=== PATIENT | male | born 1960 | race Caucasian/White ===

== ENCOUNTER 2022-05-18 16:58 | Emergency (ER) | payer OTHER, SELFPAY ==
[2022-05-18 17:08] VITALS: BP 149/94; PULSE 66; RESP 16; TEMP 37.2; O2SAT 97
--- NOTE | 2022-05-18 17:35 | XRR_ITS ---
PROCEDURE INFORMATION: Exam: XR Chest Exam date and time: 05/18/2022 5:48 PM Age: 61 years old Clinical indication: Cough TECHNIQUE: Imaging protocol: Radiologic exam of the chest. Views: 1 view. COMPARISON: No relevant prior studies available. FINDINGS: Lungs: No consolidative pulmonary infiltrate noted. Pleural spaces: No pleural effusion. No pneumothorax. Heart/Mediastinum: No cardiomegaly. Bones/joints: Degenerative spine changes are noted. XR/XR chest 1V portable [id number] IMPRESSION: No consolidative pulmonary infiltrate noted.
[2022-05-18 18:11] LABS: SARS Covid-2 Antigen negative (Negative)
[2022-05-18 18:12] LABS: Influenza A by IFA negative (Negative); Influenza B by IFA negative (Negative)
[2022-05-18 19:02] VITALS: BP 157/99; PULSE 67; RESP 16; O2SAT 98
--- NOTE | 2022-05-19 17:06 | W.ED.GENADLT ---
HPI - General Adult General: Chief complaint: General Medical Stated complaint: very bad cold Time Seen by Provider: 05/18/22 17:17 History of Present Illness: 61-year-old male patient presents to the emergency department complaining of cough and congestion x1 day. Patient denies any fever. Patient states his cough is gotten worse. Patient denies any neck pain. Patient denies any chest pain or shortness of breath. Patient states he wanted to be checked out before it potentially got any worse. Associated symptoms: Deny chest pain, confusion, diaphoresis, dyspnea, headache(s), malaise, nausea, rash, palpitations, syncope or vomiting Review of Systems Const: Denies: fever(s), chills, body aches, change in appetite, change in weight, fatigue, malaise or diaphoresis Eyes: Denies: change in vision, blurry vision, blind spots, photophobia, eye discomfort, eye discharge, eye redness, floaters or seeing flashes ENMT: Denies: throat pain, uvular edema, enlarged tonsils, odynophagia, hoarseness, mouth pain, swelling of lips/tongue, oral sores, bleeding gums, dental pain, dry mouth, ear or mastoid pain, ear discharge, change in hearing, tinnitus, disequilibrium, nasal discharge, post nasal drip or sinus pain Card: Denies: chest pain, palpitations, irregular heart rhythm, edema, swelling of feet/ankles, lightheadedness, syncope, pre-syncope, dyspnea on exertion, orthopnea, leg pain with exertion or acrocyanosis Resp: Denies: dyspnea, productive cough, wheezing, stridor, pain on inspiration, change in phlegm color, hemoptysis or chest congestion GI: Denies: abdominal pain, nausea, vomiting, hematemesis, dysphagia, diarrhea, constipation, GI cramping, change in bowel habits or rectal pain : Denies: flank pain, dysuria, urinary frequency, urinary urgency, urinary hesitancy or hematuria Musc: Denies: neck pain, back pain, extremity pain, extremity swelling, joint pain, joint swelling, joint redness, joint warmth or deformity Skin/Breast: Denies: rash, pruritus, erythema, sores, new lesions, changes in skin color or dry skin Neuro: Denies: headache(s), numbness in extremities, weakness in extremities, sensory changes, lack of coordination, difficulty walking, frequent falls, dizziness, vertigo, confusion, behavioral changes, Slurred speech present, difficulty communicating thoughts or seizure-like activity Psych: Denies: anxiety, depression, suicidal ideation or homicidal ideation Endo: Denies: polyuria, polydipsia, tired all the time, cold intolerance, excessive sweating, flushing, hot flashes or heat intolerance Hugo/Lymph: Denies: easy bruising, easy bleeding, petechiae, purpura, enlarged lymph nodes or tender lymph nodes All/Imm: Denies: urticaria, throat swelling, tongue swelling, facial swelling, acute wheezing or itchy eyes PFSH ED PFSH: Social History Smoking and tobacco status: never smoked Physical Exam Const: COMMON NORMALS: no acute distress, patient oriented x3, healthy appearing, alert and well nourished GENERAL APPEARANCE: cooperative, comfortable, well kempt and well developed; not ill appearing ORIENTATION/CONSCIOUSNESS: Yes awake, Yes oriented to person, Yes oriented to place and Yes oriented to time HENMT: COMMON NORMALS: normocephalic, atraumatic, hearing grossly normal bilaterally, external ears normal, EAC's normal, TM's normal bilaterally, Normal external nose present, Normal nasal mucous membranes and turbinates present and moist oral mucous membranes HEAD & SCALP: normal to inspection, normocephalic and atraumatic FACE & SINUS: normal facial exam, sinuses nontender and face symmetric NOSE: Normal external nose present, Normal nares present, Normal nasal mucous membranes and turbinates present, No nasal discharge present and Abnormal external nose present EXTERNAL EAR: Yes external ears normal and Yes mastoids normal EXTERNAL AUDITORY CANAL: EAC's normal TYMPANIC MEMBRANE: TM's normal bilaterally MOUTH: Normal oral and palatal mucosa present, lip normal, tongue normal and Normal salivary glands and ducts present THROAT: no uvular edema Neck/C-Spine: COMMON NORMALS: full ROM, no lymphadenopathy, supple, no meningeal signs, no JVD and Thyroid normal GENERAL: Yes normal visual inspection and Yes trachea midline THYROID: Thyroid normal CERVICAL SPINE: Yes cervical ROM normal Lymph: LYMPHATIC: no lymphadenopathy noted and no lymphedema noted Chest: COMMONS NORMALS: normal inspection of the chest and normal palpation of entire chest wall Resp: COMMON NORMALS: normal respiratory effort, No retractions, No use of accessory muscles and clear to auscultation bilaterally EFFORT & INSPECTION: Yes able to speak in complete sentences and Yes symmetric chest movement AUSCULTATION: clear to auscultation bilaterally Cardio: COMMON NORMALS: no JVD, regular rate and regular rhythm RATE: regular rate RHYTHM: regular rhythm GI: COMMON NORMALS: Normal to inspection, nondistended, normoactive bowel sounds present, Soft to palpation, non-tender, No hepatosplenomegaly present, no masses and no bruits INSPECTION: Yes normal to inspection AUSCULTATION: Yes normoactive bowel sounds PALPATION: Yes Soft to palpation and Yes No hepatosplenomegaly present PERCUSSION: normal to percussion RECTAL EXAM: Yes deferred : COMMON NORMALS: Yes no CVA tenderness BLADDER/KIDNEY EXAM: Yes no CVA tenderness Back/Pelvis: COMMON NORMALS: no CVA tenderness, thoracic and lumbar spine normal to inspection, no thoracic nor lumbar tenderness and thoraco-lumbar ROM normal THORACIC SPINE/UPPER BACK: Yes normal to inspection LUMBAR SPINE/LOWER BACK: Yes normal to inspection Extremity: COMMON NORMALS: normal to inspection, full ROM and capillary refill normal GENERAL: Yes normal exam except as noted Neuro: COMMON NORMALS: patient oriented x3, CN's II-XII intact bilaterally, moves all extremities, no focal motor deficits, no sensory deficits noted and gait normal SENSORIUM/ORIENTATION: Yes alert, Yes oriented to person, Yes oriented to place and Yes oriented to time MENINGEAL SIGNS: Yes no meningeal signs SPEECH: speech normal GAIT: Yes Normal gait present SENSORY EXAM: Yes extremities Psych: COMMON NORMALS: mental status grossly normal, Normal thought process present, cooperative, normal affect, speech normal, activity/motor behavior normal, denies hallucinations, denies homicidal ideation and denies suicidal ideation APPEARANCE: Yes grossly normal and Yes well kempt ATTITUDE: Yes calm ACTIVITY/MOTOR BEHAVIOR: Yes appropriate eye contact SPEECH: Yes normal speech THOUGHT PROCESS: Normal thought process present THOUGHT CONTENT: Yes Normal thought content present ATTENTION/CONCENTRATION: Yes attention grossly intact MEMORY/COGNITION: Yes memory grossly intact INSIGHT: Good insight present (Psych) JUDGEMENT: Good judgement present (Psych) Skin: COMMON NORMALS: no rashes or lesions noted, no wounds, turgor normal, no jaundice, no petechiae and no mottling GENERAL SKIN EXAM: no rashes or lesions noted and turgor normal Course Vital Signs: Vital signs: Vital Signs Temperature 98.9 F 05/18/22 17:08 Pulse Rate 67 05/18/22 19:02 Respiratory Rate 16 05/18/22 19:02 Blood Pressure 157/99 05/18/22 19:02 Pulse Oximetry 98 05/18/22 19:02 MDM - General Adult Medical Decision Making Patient is well-appearing nontoxic and in no acute [id number] male patient presents to the emergency department complaining of cough and congestion x1 day. Patient denies any fever. Patient states his cough is gotten worse. Patient denies any neck pain. Patient denies any chest pain or shortness of breath. Patient states he wanted to be checked out before it potentially got any worse. Patient has no evidence of meningeal irritation or hypoxemia. Patient's vital signs are stable. Patient is negative for influenza and COVID. There are no other concerning findings. Patient's findings are consistent with a viral upper respiratory infection. I discussed home care with patient as well as return precautions. Patient is requesting medication for his cough I will prescribe him Teslaura Block. I do not feel patient would warrant or benefit from any further emergent testing at this time. Patient does not have any chest pain. And patient does not have any new shortness of breath.. Differential Diagnosis Pneumonia, CHF, influenza, COVID Lab Data Radiology Impressions Chest X-Ray 05/18/22 17:35 IMPRESSION: No consolidative pulmonary infiltrate noted. Laboratory Results Influenza Type A Ag negative (Negative) 05/18/22 17:45 Influenza Type B Ag negative (Negative) 05/18/22 17:45 SARS-CoV-2 Ag (Rapid) negative (Negative) 05/18/22 17:45 Discharge Plan Discharge Patient Disposition: Home Clinical Impression: URI (upper respiratory infection) Condition: Stable Prescriptions: No Action lisinopril 20 mg tablet 20 mg PO DAILY omeprazole 20 mg capsule,delayed release(DR/EC) 20 mg PO DAILY tamsulosin 0.4 mg capsule 0.8 mg PO DAILY finasteride 5 mg tablet 5 mg PO DAILY sildenafil 50 mg tablet 50 mg PO DAILY PRN Rx Instructions: administer 30 minutes to 4 hours before activity artificial tear([id number]) 0.1-0.3-0.2 % drops 1 drp ophthalmic (eye) BID PRN propranolol 120 mg capsule,extended release 24hr 120 mg PO DAILY Discharge Orders: Discharge ED (Routine); Ordered 05/18/22 Ordered By: Eugenia Huizar Discharge Diet: Advance as tolerated Discharge Activity: Increase activity as tolerated Patient Instructions: Upper Respiratory Infection (ED), Opioid Safety, Pain Management Activity Restrictions/Additional Instructions: Please rest and stay hydrated Please return to the ER with any worsening of symptoms as provided on discharge instructions Coding Level of Care Code ED 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
== END 2022-05-18 19:03 | disposition home or self-care (01) ==
PROVIDERS: Emergency Provider Registered Nurse
DX: J06.9 Acute upper respiratory infection, unspecified (principal); Z20.822 Contact with and (suspected) exposure to COVID-19
CPT/HCPCS: 71045; 87426; 87804; 99283

== ENCOUNTER → 2022-05-29 09:06 | Outpatient (BNVA) | payer OTHER, SELFPAY | PROVIDERS: Referring Provider Emergency Medicine Emergency Medical Services; Visit Provider Specialist | DX: M25.561 Pain in right knee (principal); M25.562 Pain in left knee; G89.29 Other chronic pain; M79.605 Pain in left leg | CPT/HCPCS: 73560; 73565; 73590; 99204 ==

== ENCOUNTER → 2022-06-17 12:33 | Outpatient (BNVA) | payer OTHER, SELFPAY | PROVIDERS: Referring Provider Emergency Medicine Emergency Medical Services; Visit Provider Specialist | DX: M75.101 Unspecified rotator cuff tear or rupture of right shoulder, not specified as traumatic (principal); M12.811 Other specific arthropathies, not elsewhere classified, right shoulder | CPT/HCPCS: 73030; 99213 ==

== ENCOUNTER 2022-06-24 14:26 | Outpatient (CLI) | payer OTHER, SELFPAY ==
--- NOTE | 2022-06-24 14:30 | MR_ITS ---
WS: [id number] MRI LEFT LOWER EXTREMITY without CONTRAST. COMPARISON: Radiograph 05/29/2022 Multiplanar, multisequence imaging is performed without contrast. History: History of stress fracture 1985. Mid tib-fib pain. Multiplanar imaging through the lower extremity to include the knee. The ankle is not included. No fr acture or marrow edema. There is a marker placed along the mid tibia at the site of pain. No bone or soft tissue abnormality. There is no soft tissue mass. No muscle atrophy or edema. No vascular mass i s identified. MR/MR lower leg LT wo con* [id number] IMPRESSION: Negative MRI LEFT lower extremity.
== END 2022-06-24 14:27 | disposition home or self-care (01) ==
PROVIDERS: Visit Provider Specialist
DX: M79.605 Pain in left leg (principal)
CPT/HCPCS: 73718

== ENCOUNTER → 2022-07-08 10:07 | Outpatient (BNVA) | payer OTHER, SELFPAY | PROVIDERS: Visit Provider Specialist | DX: M25.562 Pain in left knee (principal); M25.561 Pain in right knee; G89.29 Other chronic pain | CPT/HCPCS: 99213 ==

== ENCOUNTER 2022-07-16 08:43 | Outpatient (CLI) | payer OTHER, SELFPAY ==
--- NOTE | 2022-07-16 08:45 | MR_ITS ---
WS: [id number] EXAMINATION: MR shoulder RT wo con* [id number] ORDER DATE: 07/16/2022 8:46 AM COMPARISON: None. HISTORY: right shoulder pain CONTRAST: None. TECHNIQUE: Axial T2 STAR, coronal proton density fat sat, sagittal T2 fat sat, sagittal proton densit y fat sat, axial proton density fat sat, coronal T2 fat sat, and coronal T1 performed. After contrast , axial T1 fat sat, coronal T1 fat sat, and sagittal T1 fat sat were performed. FINDINGS: Moderate degenerative arthritis AC joint with mild edema. Mild downsloping acromion with impingement on the distal supraspinatus. Small amount of subacromial fluid. Tendinopathy in the distal supraspina tus. Small intrasubstance tears and insertional tear at the distal supraspinatus. Normal infraspinatus. Normal teres minor. Normal subscapularis. Biceps tendon intact within the bicip ital groove. Small intrasubstance tear involving the intra-articular biceps tendon. Biceps labral anc hor appears intact. Advanced degenerative narrowing glenohumeral articulation. Degenerative fraying g lenoid labrum. Normal bone marrow signal in the humerus and glenoid. MR/MR shoulder RT wo con* [id number] IMPRESSION: 1. Moderate degenerative arthritis AC joint with fluid and edema AC joint. Sma ll amount of subacromial fluid. 2. Mild downsloping of the acromium with impingement distal supraspinatus. Sma ll distal intrasubstance insertional tears with tendinopathy. No tendon retract ion. 3. Rotator cuff is otherwise intact. 4. Irregularity with intrasubstance tear involving the intra-articular biceps tendon. Biceps labral anchor appears intact. 5. Advanced narrowing glenohumeral joint with degenerative fraying glenoid lab rum.
== END 2022-07-16 08:44 | disposition home or self-care (01) ==
LOC: RAD 08:45
PROVIDERS: PCP Emergency Medicine Emergency Medical Services; Visit Provider Specialist
DX: M19.011 Primary osteoarthritis, right shoulder (principal); M25.511 Pain in right shoulder; G89.29 Other chronic pain
CPT/HCPCS: 73221

== ENCOUNTER → 2022-07-24 10:20 | Outpatient (BNVA) | payer OTHER, SELFPAY | PROVIDERS: PCP Emergency Medicine Emergency Medical Services; Visit Provider Specialist | DX: M75.101 Unspecified rotator cuff tear or rupture of right shoulder, not specified as traumatic (principal); M12.811 Other specific arthropathies, not elsewhere classified, right shoulder | CPT/HCPCS: 99213 ==

== ENCOUNTER 2022-07-30 06:00 | Outpatient (RCR) | payer OTHER, SELFPAY | END 2022-08-16 23:59 | disposition home or self-care (01) | LOC: WPT 06:00 | PROVIDERS: PCP Emergency Medicine Emergency Medical Services; Visit Provider Specialist | DX: Z47.89 Encounter for other orthopedic aftercare (principal) | CPT/HCPCS: 97110; 97140; 97161; 97530 ==

== ENCOUNTER 2022-09-16 06:00 | Outpatient (RCR) | payer OTHER, SELFPAY | END 2022-10-16 23:59 | disposition home or self-care (01) | LOC: WPT 06:00 | PROVIDERS: PCP Emergency Medicine Emergency Medical Services; Visit Provider Specialist | DX: Z47.89 Encounter for other orthopedic aftercare (principal) | CPT/HCPCS: 97110; 97112; 97530 ==

== ENCOUNTER 2022-10-17 06:00 | Outpatient (RCR) | payer OTHER, SELFPAY | END 2022-11-15 23:59 | disposition home or self-care (01) | LOC: WPT 06:00 | PROVIDERS: PCP Emergency Medicine Emergency Medical Services; Visit Provider Specialist | DX: M25.511 Pain in right shoulder (principal) | CPT/HCPCS: 97110; 97530 ==

== ENCOUNTER 2023-09-02 07:09 | Outpatient (CLI) | payer OTHER, SELFPAY ==
--- NOTE | 2023-09-02 07:34 | ECG_ITS ---
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 Interpretive Statements NAME OF STUDY: EXERCISE SESTAMIBI STRESS TEST INDICATION: LEFT ARM PAIN, PROCEDURE: The baseline electrocardiogram showed [normal sinus rhythm with some nonspecific T wave changes in the inferior leads. Possible old inferior wall DE. Poor R wave progression. At the baseline, the patient's blood pressure was 118/81 mm Hg with a heart rate of 85. The patient exercised for 3 minutes on a standard Andi protocol. Patient attained a maximum heart rate of 152 beats per minute(98% of the maximum predicted heart rate) with a blood pressure at the peak exercise of 184/96 mm Hg. The EKG at the peak exercise revealed no significant changes. Patient did not have any chest pain or any significant arrhythmis with the exercise Sestamibi was injected 1 minute prior to the peak exercise During the recovery phase, there were no new changes. Blood pressure at the end of the recovery phase was 173/75 mm Hg with a heart rate of 86 per minute. CONCLUSION: 1. No significant EKG changes with the treadmill exercise 2. No exercise-induced chest pain or cardiac arrhythmia 3. Impaired exercise tolerance, attained a maximum of 4.6 METs 4. Sestamibi/Sestamibi perfusion results pending; see separate report. Electronically Signed On 09-08-2023 10:07:39 CDT by Keyla Velasco M.D. [email or web address]
--- NOTE | 2023-09-02 07:34 | NMCV_ITS ---
NM parul perf SPECT r/s* [id number] Nick Braga Age: 62 Gender: M : 1960 Exam Date: 09/02/2023 08:03 Ordering Phys: Sukumar Wells DO Technologist: CORTEZ Carrera Exam Location: [facility] Indications: SHORTNESS OF BREATH STRESS TEST [facility] IMAGE PROTOCOL Rest/Stress 1 Exercise Day Radiopharmaceutical Dose (mCi) Administration Site Administered by Rest: Tc-99m 10.6 IV CORTEZ Blackwood Sestamibi Stress:Tc-99m 32.9 IV CORTEZ Blackwood Sestamilan Rest: 02-Sep-2023 60 Discovery 630 Stress: 02-Sep-2023 15 Discovery 630 Radiopharmaceutical was injected at 86 % maximum heart rate. Images obtained in supine and prone position. SPECT RESULTS Technical Quality: Excellent Raw Data Analysis: Normal Image Corrections: No attenuation or motion correction applied Summed Stress Score: 0 Summed Rest Score: 3 Summed Difference Score: 0 PERFUSION FINDINGS Fairly uniform myocardial tracer uptake. No significant perfusion abnormalities. FUNCTIONAL RESULTS (calculated via Gated SPECT) Stress Image LV EF (%): 73 Stress EDV (mL):119 TID: 0.93 Stress ESV (mL):32 FUNCTIONAL FINDINGS: Segmental wall motion analysis revealing no gross wall motion abnormalities IMPRESSIONS 1. Myocardial perfusion imaging revealing uniform myocardial tracer uptake with no significant perfusion abnormalities 2. Normal LV ejection fraction of 73% 3. LV wall motion analysis revealing no gross wall motion abnormalities. 4. Normal LV volume Low probability for coronary ischemia, based on the above findings Dr Keyla Velasco MD FACC (Electronically Signed) Final Date: 02 September 2023 16:28 S
[2023-09-02 07:35] VITALS: BMI 35.9
[2023-09-02 09:59] VITALS: BP 175/75; PULSE 87
== END 2023-09-02 07:10 | disposition home or self-care (01) ==
LOC: CDL 07:10
PROVIDERS: PCP Emergency Medicine Emergency Medical Services; Visit Provider Emergency Medicine Emergency Medical Services
DX: R06.02 Shortness of breath (principal)
CPT/HCPCS: 36415; 78452; 93017; 96374; A9500

== ENCOUNTER → 2024-02-10 09:30 | Outpatient (BNVA) | payer OTHER, SELFPAY | PROVIDERS: PCP Emergency Medicine Emergency Medical Services; Visit Provider Internal Medicine | DX: E04.1 Nontoxic single thyroid nodule (principal); E55.9 Vitamin D deficiency, unspecified; E04.2 Nontoxic multinodular goiter; R79.89 Other specified abnormal findings of blood chemistry | CPT/HCPCS: 36415; 80053; 82306; 82310; 83970; 99204 ==

== ENCOUNTER 2024-05-25 14:11 | Outpatient (CLI) | payer OTHER, SELFPAY ==
--- NOTE | 2024-05-25 14:15 | USR_ITS ---
PROCEDURE INFORMATION: Exam: US Soft Tissue Head and Neck, Thyroid Exam date and time: 05/25/2024 2:29 PM Age: 63 years old Clinical indication: Other: Multiple thyroid nodules; Additional info: Multiple thyroid nodules, include tirads TECHNIQUE: Imaging protocol: Real-time ultrasound scan of the neck with image documentation. Exam focused on the thyroid. COMPARISON: MR shoulder RT wo con* [id number] 07/16/2022 9:01 AM FINDINGS: Right thyroid lobe: Right thyroid lobe measures 4.9 x 3.5 x 2.3 cm. Heterogeneous parenchymal appearance to the right thyroid lobe. 1.2 x 1.4 x 1.3 cm solid nodule within or posterior to the right thyroid lobe. 1.2 x 0.8 x 1.3 cm mixed cystic and solid nodule in the right thyroid lobe upper pole. Left thyroid lobe: Heterogeneous parenchyma to the left thyroid lobe. Left thyroid lobe measures 5.2 x 2.4 x 2.5 cm. 1.9 x 1.1 x 1.4 cm solid nodule in the left thyroid inferior pole. Isthmus: Thyroid isthmus measures 0.3 cm. 1.2 x 0.9 x 1.4 cm solid nodule to the right of the thyroid isthmus. Lymph nodes: No concerning neck adenopathy. US/US thyroid [id number] IMPRESSION: 1. 1.9 x 1.1 x 1.4 cm solid nodule in the left thyroid inferior pole. TIRADS Category 4: Moderately suspicious. FNA is recommended due to size. 2. 1.2 x 1.4 x 1.3 cm solid nodule within or posterior to the right thyroid lobe. Differential includes a true thyroid nodule, in which case it would classify as TIRADS Category 4: Moderately suspicious (requiring follow-up in 1 year), versus a parathyroid nodule. Consider follow-up or correlation with a parathyroid protocol CT. 3. 1.2 x 0.8 x 1.3 cm mixed cystic and solid nodule in the right thyroid lobe upper pole. TIRADS Category 2: Not suspicious. 4. 1.2 x 0.9 x 1.4 cm solid nodule to the right of the thyroid isthmus. TIRADS Category 4: Moderately suspicious (follow-up in 1 year is recommended). 5. Thyromegaly.
== END 2024-05-25 14:12 | disposition home or self-care (01) ==
LOC: RAD 14:12
PROVIDERS: PCP Nurse Practitioner Family; Visit Provider Internal Medicine
DX: E04.2 Nontoxic multinodular goiter (principal)
CPT/HCPCS: 76536

== ENCOUNTER 2024-06-23 10:46 | Outpatient (CLI) | payer OTHER, SELFPAY ==
--- NOTE | 2024-06-23 11:45 | US_ITS ---
WS: [id number] ULTRASOUND THYROID FNA CLINICAL INFORMATION: R93.89 - Abnormal findings on diagnostic imaging of other... TECHNIQUE: Ultrasound-guided FNA FINDINGS: The procedure including risks, benefits, and complications were discussed with the patient who agreed to proceed. Timeout was performed. Using sterile technique patient was prepped and draped in usual sterile fashion. After 1% lidocaine, using ultrasound guidance, a 25-gauge needle was advanced into the LEFT thyroid nodule. 5 passes were made. Pathology was present for slide preparation. No immediate complications. Patient remained in the ultrasound suite 10 minutes postprocedure with intermittent ultrasound to ensure no hematoma. No hematoma 10 minutes postprocedure. US/US biopsy/FNA thyroid [id number] IMPRESSION: Uncomplicated ultrasound-guided thyroid FNA
== END 2024-06-23 10:47 | disposition home or self-care (01) ==
PROVIDERS: PCP Nurse Practitioner Family; Visit Provider Internal Medicine
DX: R93.89 Abnormal findings on diagnostic imaging of other specified body structures (principal)
CPT/HCPCS: 10005; 88173

== ENCOUNTER → 2024-07-19 11:49 | Outpatient (BNVA) | payer OTHER, SELFPAY | PROVIDERS: PCP Nurse Practitioner Family; Visit Provider Internal Medicine | DX: E04.2 Nontoxic multinodular goiter (principal); R79.89 Other specified abnormal findings of blood chemistry; E55.9 Vitamin D deficiency, unspecified | CPT/HCPCS: 99214 ==

== ENCOUNTER → 2024-09-06 08:46 | Outpatient (BNVA) | payer OTHER, SELFPAY | PROVIDERS: PCP Nurse Practitioner Family; Visit Provider Specialist | DX: S83.242A Other tear of medial meniscus, current injury, left knee, initial encounter (principal); G89.29 Other chronic pain; Z01.818 Encounter for other preprocedural examination; X58.XXXA Exposure to other specified factors, initial encounter | CPT/HCPCS: 73560; 73565; 80053; 81001; 85025; 99214 ==

== ENCOUNTER 2024-09-07 13:41 | Emergency (ER) | payer OTHER, SELFPAY ==
[2024-09-07 13:45] VITALS: BP 143/82; PULSE 67; RESP 16; TEMP 36.4; O2SAT 91
--- NOTE | 2024-09-07 14:22 | W.ED.BACK ---
HPI - Back Pain/Injury General: Chief Complaint: Back Pain/Injury Stated Complaint: back pain Time Seen by Provider: 09/07/24 14:07 Source: patient Mode of arrival: ambulatory Limitations: no limitations History of Present Illness: Patient is a 63-year-old male who presents to ED today with a complaint of left lower back pain that he states started yesterday after he was lifting something that weighed approximately 20 pounds. He states when he lifted, he immediately felt pain to his left lower back. He states pain seems to radiate down into his left buttock and down the posterior aspect of his left upper thigh. He is not complaining of any saddle anesthesia or bowel or bladder dysfunction. He is ambulatory here without difficulty or assistance. He does have chronic back pain. He has been taking his normal medications of meloxicam and methocarbamol without much relief. MD elicited complaint: back pain Pertinent past history: prior back pain Onset (ago): day(s) Timing: constant Severity: moderate Similar Symptoms Previously: Yes Location: left lower back Radiation: buttocks and left upper leg Exacerbating factors: movement and walking Relieving factors: none Context: while lifting Associated symptoms: Reports no associated symptoms; Deny abdominal pain, difficulty walking, dysuria or hematuria Treatments prior to arrival: NSAIDS Work related injury: No Related Data Home Medications ?Medication ?Instructions ?Recorded ?Confirmed artificial 1 drp ophthalmic (eye) BID PRN 09/04/21 09/06/24 tears(hktskis-xhmhyacz-lrnhpub) 0.1 %-0.3 %-0.2 % eye drops finasteride 5 mg tablet 5 mg PO DAILY 09/04/21 09/06/24 lisinopril 20 mg tablet 20 mg PO DAILY 09/04/21 09/06/24 omeprazole 20 mg capsule,delayed 20 mg PO DAILY 09/04/21 09/06/24 release propranolol 120 mg 120 mg PO DAILY 09/04/21 09/06/24 capsule,extended release 24 hr sildenafil 50 mg tablet 50 mg PO DAILY PRN 09/04/21 09/06/24 tamsulosin 0.4 mg capsule 0.8 mg PO DAILY 09/04/21 09/06/24 hydroxyzine HCl 25 mg tablet mg PO 02/10/24 09/06/24 meloxicam 7.5 mg tablet mg PO 02/10/24 09/06/24 methocarbamol 500 mg tablet mg PO 02/10/24 09/06/24 mupirocin 2 % topical ointment topical 02/10/24 09/06/24 Previous Rx's ?Medication ?Instructions ?Recorded hydrocodone 5 mg-acetaminophen 325 1 tab PO Q6H PRN pain #14 tabs 09/07/24 mg tablet methylprednisolone 4 mg tablets in See Rx Instructions PO .COMPLEX 09/07/24 a dose pack (Medrol (Ilia)) #21 ea Allergies Allergy/AdvReac Type Severity Reaction Status Date / Time adhesive tape Allergy ALGY-Rash Verified 09/06/24 09:00 Review of Systems Card: Denies: chest pain Resp: Denies: dyspnea GI: Denies: abdominal pain : Denies: flank pain, dysuria or hematuria Musc: Reports: back pain; Denies: neck pain, extremity pain, extremity swelling, joint pain, joint swelling or joint redness Neuro: Denies: numbness in extremities, weakness in extremities, sensory changes or difficulty walking PFS ED PFSH: Social History Smoking and tobacco/nicotine status: never used tobacco/nicotine Physical Exam Const: COMMON NORMALS: no acute distress, patient oriented x3, no limitations, alert and well nourished GENERAL APPEARANCE: cooperative NUTRITIONAL APPEARANCE: obese Resp: COMMON NORMALS: normal respiratory effort and clear to auscultation bilaterally AUSCULTATION: clear to auscultation bilaterally Cardio: COMMON NORMALS: regular rate and regular rhythm RATE: regular rate RHYTHM: regular rhythm : COMMON NORMALS: Yes no CVA tenderness BLADDER/KIDNEY EXAM: Yes no CVA tenderness Back/Pelvis: COMMON NORMALS: no CVA tenderness, thoracic and lumbar spine normal to inspection, no thoracic nor lumbar tenderness and thoraco-lumbar ROM normal LUMBAR SPINE/LOWER BACK: No lumbar spinal tenderness PELVIS: Yes sciatic notch tenderness on the left SACROILIAC JOINTS: Yes SI joint(s) abnormal SI joint details: tender to palpation (L) SACRUM: no tenderness COCCYX: no tenderness Extremity: COMMON NORMALS: normal to inspection, full ROM and capillary refill normal GENERAL: Yes normal exam except as noted Neuro: COMMON NORMALS: patient oriented x3, moves all extremities, no focal motor deficits, no sensory deficits noted and gait normal SENSORIUM/ORIENTATION: Yes alert Course Vital Signs: Vital signs: Vital Signs Temperature 97.6 F 09/07/24 13:45 Pulse Rate 67 09/07/24 13:45 Respiratory Rate 16 09/07/24 13:45 Blood Pressure 143/82 09/07/24 13:45 Pulse Oximetry 91 09/07/24 13:45 Oxygen Delivery Me thod Room Air 09/07/24 13:45 MDM - Back Pain/Injury Medical Decision Making Patient already has prescriptions for meloxicam and methocarbamol he can continue using. Will place him on steroids and give him something to help further with his discomfort. Recommend he follow-up with primary care in 1 to 2 weeks if symptoms do not seem to be improving. No red flag symptoms noted on history or physical examination. He does not require any form of emergent imaging at this time. Return ED precautions discussed Differential Diagnosis Likely lumbar radiculopathy and sciatica No radiology studies performed this visit Discharge Plan Discharge Patient Disposition: Home Clinical Impression: Acute lumbar radiculopathy Condition: Stable Prescriptions: New hydrocodone-acetaminophen 5-325 mg tablet 1 tab PO Q6H PRN (Reason: pain) Qty: 14 0RF methylprednisolone [Medrol (Ilia)] 4 mg tablets,dose pack See Rx Instructions .ROUTE .COMPLEX Qty: 21 0RF Rx Instructions: orally per package directions Continued meloxicam 7.5 mg tablet PO No Action lisinopril 20 mg tablet 20 mg PO DAILY omeprazole 20 mg capsule,delayed release(DR/EC) 20 mg PO DAILY tamsulosin 0.4 mg capsule 0.8 mg PO DAILY finasteride 5 mg tablet 5 mg PO DAILY sildenafil 50 mg tablet 50 mg PO DAILY PRN Rx Instructions: administer 30 minutes to 4 hours before activity artificial tear(djqzp-hpm-nki) 0.1-0.3-0.2 % drops 1 drp ophthalmic (eye) BID PRN propranolol 120 mg capsule,extended release 24hr 120 mg PO DAILY mupirocin 2 % ointment topical hydroxyzine HCl 25 mg tablet PO methocarbamol 500 mg tablet PO Discharge Orders: Discharge ED (Routine); Ordered 09/07/24 Ordered By: Leeann Gibbons Referrals: Michelle Oneill APRN [Primary Care Provider] - Patient Instructions: Opioid Safety, Pain Management Activity Restrictions/Additional Instructions: As we discussed, please follow-up with primary care in 1 to 2 weeks if symptoms do not seem to be improving. Print Language: Sami Coding Level of Care Code ED Sheet Metal Installer for Rohit Julian
[2024-09-07] MEDS: ketorolac 30 mg/mL INJ IM (15:00)
[2024-09-07] MEDS: dexamethasone 10 mg/mL INJ 8 MG IM (15:00)
[2024-09-07] MEDS: orphenadrine 30 mg/mL Inj 2 mL 60 MG IM (15:00)
[2024-09-07] MEDS: morphine 4 mg/mL SDV 1 mL IM (15:00)
--- NOTE | 2024-09-07 15:05 | W.ED.BACK ---
HPI - Back Pain/Injury General: Chief Complaint: Back Pain/Injury Stated Complaint: back pain Time Seen by Provider: 09/07/24 14:07 Source: patient Limitations: no limitations History of Present Illness: Severity: moderate Similar Symptoms Previously: Yes Exacerbating factors: movement and walking Relieving factors: none Treatments prior to arrival: NSAIDS Related Data Home Medications ?Medication ?Instructions ?Recorded ?Confirmed artificial 1 drp ophthalmic (eye) BID PRN 09/04/21 09/06/24 tears(ywigvvp-fpadkjom-drwtfdr) 0.1 %-0.3 %-0.2 % eye drops finasteride 5 mg tablet 5 mg PO DAILY 09/04/21 09/06/24 lisinopril 20 mg tablet 20 mg PO DAILY 09/04/21 09/06/24 omeprazole 20 mg capsule,delayed 20 mg PO DAILY 09/04/21 09/06/24 release propranolol 120 mg 120 mg PO DAILY 09/04/21 09/06/24 capsule,extended release 24 hr sildenafil 50 mg tablet 50 mg PO DAILY PRN 09/04/21 09/06/24 tamsulosin 0.4 mg capsule 0.8 mg PO DAILY 09/04/21 09/06/24 hydroxyzine HCl 25 mg tablet mg PO 02/10/24 09/06/24 meloxicam 7.5 mg tablet mg PO 02/10/24 09/06/24 methocarbamol 500 mg tablet mg PO 02/10/24 09/06/24 mupirocin 2 % topical ointment topical 02/10/24 09/06/24 Previous Rx's ?Medication ?Instructions ?Recorded hydrocodone 5 mg-acetaminophen 325 1 tab PO Q6H PRN pain #14 tabs 09/07/24 mg tablet methylprednisolone 4 mg tablets in See Rx Instructions PO .COMPLEX 09/07/24 a dose pack (Medrol (Ilia)) #21 ea Allergies Allergy/AdvReac Type Severity Reaction Status Date / Time adhesive tape Allergy ALGY-Rash Verified 09/06/24 09:00 [facility] ED PFSH: Social History Smoking and tobacco/nicotine status: never used tobacco/nicotine Course Vital Signs: Vital signs: Vital Signs Temperature 97.6 F 09/07/24 13:45 Pulse Rate 67 09/07/24 13:45 Respiratory Rate 16 04/22/25 13:45 Blood Pressure 143/82 09/07/24 13:45 Pulse Oximetry 91 09/07/24 13:45 Oxygen Delivery Me thod Room Air 09/07/24 13:45 Discharge Plan Discharge Patient Disposition: Home Clinical Impression: Acute lumbar radiculopathy Condition: Stable Prescriptions: New hydrocodone-acetaminophen 5-325 mg tablet 1 tab PO Q6H PRN (Reason: pain) Qty: 14 0RF methylprednisolone [Medrol (Ilia)] 4 mg tablets,dose pack See Rx Instructions .ROUTE .COMPLEX Qty: 21 0RF Rx Instructions: orally per package directions Continued meloxicam 7.5 mg tablet PO No Action lisinopril 20 mg tablet 20 mg PO DAILY omeprazole 20 mg capsule,delayed release(DR/EC) 20 mg PO DAILY tamsulosin 0.4 mg capsule 0.8 mg PO DAILY finasteride 5 mg tablet 5 mg PO DAILY sildenafil 50 mg tablet 50 mg PO DAILY PRN Rx Instructions: administer 30 minutes to 4 hours before activity artificial tear(zvhpr-vyr-tvd) 0.1-0.3-0.2 % drops 1 drp ophthalmic (eye) BID PRN propranolol 120 mg capsule,extended release 24hr 120 mg PO DAILY mupirocin 2 % ointment topical hydroxyzine HCl 25 mg tablet PO methocarbamol 500 mg tablet PO Discharge Orders: Discharge ED (Routine); Ordered 09/07/24 Ordered By: Leeann Gibbons Referrals: Michelle Oneill APRN [Primary Care Provider] - Patient Instructions: Opioid Safety, Pain Management Activity Restrictions/Additional Instructions: As we discussed, please follow-up with primary care in 1 to 2 weeks if symptoms do not seem to be improving. Print Language: Hungarian Coding Level of Care Code ED Cook Morning for Rohit Julian
== END 2024-09-07 15:18 | disposition home or self-care (01) ==
PROVIDERS: Emergency Provider Physician Assistant; PCP Nurse Practitioner Family
DX: M54.16 Radiculopathy, lumbar region (principal)
CPT/HCPCS: 96372; 99284; J1100; J1885; J2270; J2360

== ENCOUNTER 2024-10-01 07:35 | Day surgery (SDC) | payer OTHER, SELFPAY ==
[2024-10-01] VITALS (11 sets, daily range): BP systolic 108–137; BP diastolic 72–92; PULSE 57–73; RESP 14–18; TEMP 36.1–36.2; O2SAT 92–100; BMI 36.5
[2024-10-01] MEDS: CELEcoxib 200 mg Capsule 400 MG PO (08:25)
[2024-10-01] MEDS: gabapentin 300 mg Capsule PO (08:25)
[2024-10-01] MEDS: sodium chloride 0.9% 1,000 ML 30 ML IV (08:26)
--- NOTE | 2024-10-01 08:29 | ANES.PREANE2 ---
Pre-Anesthetic Assessment Height/Weight: Height 6 ft 4 in Weight 300 lb Temp Pulse Resp BP Pulse Ox O2 Del Method 97.1 F L 71 18 108/73 92 Room Air 10/01/24 07:54 10/01/24 07:54 10/01/24 07:54 10/01/24 07:54 10/01/24 07:54 10/01/24 07:54 Preop Diagnosis: Meniscus tear Operation Date: 10/01/24 09:10 Proposed Procedures p Knee Arthroscopy Knee Arthroscopy w/ partial Medial Menisectomy(Left) - Claudette Rivera MD Was Beta Kelley taken within 24 hours: Yes Was Clonidine taken within 24 hours: N/A Last intake: Intake Last Liquid Date 10/01/24 Last Liquid Time 05:30 Last Solid Date 09/30/24 Last Solid Time 19:00 Social No alcohol and No tobacco Quit smoking in 1989 Exam alert, oriented x 3, clear to auscultation bilaterally and regular rate & rhythm Airway Submandibular: within normal limits Cervical ROM: within normal limits Mallampati: Class II Dentition: full Anesthetic Plan ASA status: 3 Anesthesia: General Other: Patient states that he was slow to wake up from his colonoscopy, no other issues from anesthesia known NPO since yesterday evening History of hypertension on lisinopril and propranolol GERD, controlled with Protonix History of migraines Recent labs reviewed in August and acceptable for procedure Patient has an abdominal aortic aneurysm measuring 3.8 cm. They are just watching this Negative stress test in 2023 Plan for general anesthesia Medications/Allergies Home Medications ?Medication ?Instructions ?Recorded ?Confirmed ?Last Taken ?Type artificial 1 drp ophthalmic (eye) BID PRN Dry 09/04/21 10/01/24 09/30/24 History tears(dbkserl-xsxxniga-yuyuxss) Eye(S) 0.1 %-0.3 %-0.2 % eye drops propranolol 120 mg 120 mg PO DAILY 09/04/21 09/30/24 10/01/24 05:30 History capsule,extended release 24 hr hydroxyzine HCl 25 mg tablet 25 mg PO PRN 02/10/24 10/01/24 09/30/24 History meloxicam 7.5 mg tablet 7.5 mg PO DAILY 02/10/24 09/30/24 09/25/24 History mupirocin 2 % topical ointment 1 applic topical PRN PRN arthritis 02/10/24 10/01/24 2 Months Ago History ~08/01/24 alfuzosin 10 mg tablet,extended 10 mg PO DAILY 09/27/24 09/30/24 09/30/24 History release 24 hr cetirizine 10 mg tablet 10 mg PO DAILY PRN Dry Eye(S) 09/27/24 09/30/24 09/30/24 History cholecalciferol (vitamin D3) 125 125 mcg PO DAILY 09/27/24 09/30/24 09/30/24 History mcg (5,000 unit) capsule cyclobenzaprine 10 mg tablet 10 mg PO TID 09/27/24 10/01/24 09/29/24 History fluticasone propionate 50 1 spray intranasal DAILY 09/27/24 10/01/24 1 Month Ago History mcg/actuation nasal ~09/01/24 spray,suspension lisinopril 20 mg tablet 40 mg PO DAILY 09/27/24 09/30/24 09/30/24 History multivitamin 1 tab PO DAILY 09/27/24 09/30/24 09/30/24 History pantoprazole 40 mg tablet,delayed 40 mg PO BID 09/27/24 09/30/24 10/01/24 05:30 History release solifenacin 10 mg tablet 10 mg PO DAILY 09/27/24 09/30/24 09/30/24 History vit C 180 mg-D3 10 mcg-zinc 5.5 1 cap PO DAILY 09/27/24 10/01/24 09/30/24 History bl-unohgi-bnfisir-heidi-herb capsule (Immune Support (vit c, d and zinc)) zinc acetate 50 mg (zinc) capsule 50 mg PO DAILY 09/27/24 09/30/24 09/30/24 History albuterol sulfate 90 mcg/actuation 2 puff inhalation TID PRN Wheezing 09/30/24 10/01/24 09/28/24 History aerosol inhaler Allergies Allergy/AdvReac Type Severity Reaction Status Date / Time adhesive tape Allergy ALGY-Rash Verified 09/27/24 12:10 Current Medications Generic Name Dose Route Start Last Admin Trade Name Freq PRN Reason Stop Dose Admin Sodium Chloride 1,000 mls @ 30 mls/hr 10/01/24 07:45 10/01/24 08:26 Sodium Chloride 0.9% IV 10/02/24 07:44 30 mls/hr .Q24H STANISLAW Administration PFSH Anesthesia Social History Smoking and tobacco/nicotine status: never used tobacco/nicotine Data Anesthesia Cardiac Studies: Sestamibi Stress Test (Cardiology) 09/02/23
--- NOTE | 2024-10-01 08:32 | P.HPUD_ITS ---
Surgery/Procedure H&P Update DATE OF PROCEDURE: October 01, 2024 DATE H&P PERFORMED: 09/27/24 H&P UPDATE INFORMATION: I have reviewed H&P completed within last 30 days, I have examined patient prior to procedure, No changes to prior documentation, H&P is in [facility] EMR on date indicated and Risks and benefits of the procedure reviewed CHANGES TO PREVIOUS DOCUMENTATION: [facility] [place] [facility]. Findings on this study include a mild degree of nonspecific subcutaneous soft tissue edema without specific fluid collection. Anterior posterior cruciate ligaments were intact as were the medial and lateral collateral ligaments. There was some periligamentous edema associated with the medial collateral ligament indicating possible grade 1 sprain. There was a complex tear involving the posterior horn and body of the medial meniscus which included a displaced flap. The lateral meniscus was intact. There was mild osteophyte formation and a moderate degree of intermediate to high-grade chondromalacia affecting the medial compartment with associated reactive subcortical marrow signal. There was also intra- articular chondral debris within the knee. PREOP DIAGNOSIS: Left knee medial Meniscus tear PLANNED PROCEDURE: Operation Date: 10/01/24 09:10 Proposed Procedures p Knee Arthroscopy Knee Arthroscopy w/ partial Medial Menisectomy(Left) - Claudette Rivera MD Related Problem List Diagnoses (1) Tear of medial meniscus of left knee: Qualifiers: Tear current or old: unspecified Encounter type: initial encounter Meniscus tear of knee type: complex Qualified Code(s): S83.232A - Complex tear of medial meniscus, current injury, left knee, initial encounter
[2024-10-01] MEDS: scopolamine 1 mg PATCH 1 PATCH TRANSDERMA (08:39)
[2024-10-01] MEDS: ceFAZolin 2,000 mg SDV 2000 MG IVP (08:58)
[2024-10-01] MEDS: ceFAZolin 1,000 mg SDV 1000 MG IVP (08:59)
[2024-10-01] MEDS: ROPivacaine 0.5% SDV 30 mL 150 MG INJECTION (10:59)
[2024-10-01] MEDS: morphine 4 mg/mL SDV 1 mL 8 MG XX (11:00)
--- NOTE | 2024-10-01 11:36 | P.OP_ITS ---
Operative Report Date of procedure: October 01, 2024 Pre-op diagnosis: Left knee medial meniscus tear with primary osteoarthritis Post-op diagnosis: Left knee medial and lateral meniscal tears with synovitis and primary osteoarthritis Post-op findings: Severe change of osteoarthritis in the left medial femoral condyle. Synovitis anteriorly in the knee. Osteoarthritic change elsewhere throughout the knee. Procedure done: Left arthroscopic knee surgery with partial medial and lateral meniscectomies, chondroplasty medial femoral condyle and patella. Anterior synovectomy. Implants: None Specimens removed/disposition: Arthroscopic shavings disposed of Pathology: None Surgeon: Claudette Rivera MD [employer]: [facility] operating room technicians Anesthesia: General (Per LMA, ASA 3) Estimated blood loss (mL): 10 Tourniquet time (min): 53 (At 250 mmHg) Initially, the tourniquet was elevated, but secondary to equipment, it was released after 6 minutes at 250 mmHg. It was then reexsanguinated and elevated for 53 minutes. IV fluids (mL): 1,100 Urine output (mL): 0 (No King) Complications: None Findings: Severe degenerative osteoarthritic microsoft exchange architect the medial femoral condyle with significant bone loss on the weightbearing aspect. Chondromalacia on the undersurface of the patella. Inner rim tearing of the lateral meniscus and more significant posterior horn to mid meniscus in the medial meniscus. Condition: stable Disposition: PACU (Then return to same-day surgery for discharge to home) Brief History: This 63-year-old gentleman presented to the office complaining of severe right knee pain which limited his activities of daily living. He had an MRI which demonstrated a complex tear within the posterior horn and body of the medial meniscus with mild osteophyte formation and moderate intermediate to high-grade chondromalacia within the medial compartment. Because of this, the patient wished to proceed with arthroscopic intervention. Risks and complications were discussed with him. Consents were signed and questions were answered. On the morning of surgery, further opportunity was given for questions and answers regarding the surgery. Procedure: Patient was brought to the operating theater and after undergoing adequate general anesthesia per LMA, ASA 3, the patient's left lower extremity was prepped and draped in usual fashion utilizing DuraPrep. A tourniquet was placed high on the leg prior to prepping and draping. The tourniquet was elevated prior to commencement of the surgical procedure to 250 mmHg. Secondary to equipment, the tourniquet was released initially after 6 minutes. It was reexsanguinated and the tourniquet was elevated for a total tourniquet time was 53 minutes in addition to the initial 6 minutes. Elevation followed prepping and exsanguination. Prior to commencement of the surgical procedure, a surgical pause was performed. At the time of the surgical pause, we identified the site and side of surgery. We also confirm the patient's identity and appropriate and timely administration of preoperative antibiotics, Ancef 3 g. Preoperative surgical markings were also visualized at this time. Standard arthroscopic portals were utilized including superolateral, inferomedial, and inferolateral portals. The examination commenced in the suprapatellar pouch area where the patient was noted to have chondromalacia of the significant degree on the undersurface of the patella. There was associated synovitis in this area as well. The arthroscope was then passed in the medial compartment where there was noted to be complex tearing within the posterior horn to the mid body of the meniscus. Additionally, there was near complete obliteration of cartilage over the weightbearing surface of the medial femoral condyle. This was quite rough. The arthroscope was then passed across the notch area where anterior cruciate ligament was visualized and found to be intact. Synovectomy was performed in this area. The scope was passed into the lateral compartment with the knee in a [id number]-oq-[id number] position. Lateral meniscus was noted to have inner rim tearing which was addressed with a combination of the intra-articular shaver and heat wand. Once lateral meniscus had been thus prepared it was palpated and found to be intact and not displaceable into the knee joint. Scope was then returned to the medial compartment where the medial meniscal tear was addressed with a combination of basket forceps, the intra-articular shaver, and the intra-articular heat wand.. The meniscus was palpated and found to be not displaceable into the knee joint. In addition to addressing the meniscus, the shaver and heat wand were used to address the severe chondromalacia on the weightbearing surface of the medial femoral condyle. The arthroscope was then returned to the patellofemoral joint where a chondroplasty was performed of the undersurface of the patella. This chondroplasty involved use of the intra-articular shaver as well as the heat wand. Once the patella had been addressed, the scope was passed back through the knee compartments to evaluate for other abnormalities. Finding none, attention was directed to closure. The knee was copiously irrigated and suctioned dry. Following this, each portal was closed with a simple subcuticular suture followed by Dermabond, Steri- Strips, and OpSite. Additionally, the knee was injected with 20 mL of half percent ropivacaine and 8 mg of morphine. Additional 10 mL of ropivacaine was placed about the portals. Sterile dressing was placed consisting of the OpSite followed by 4 x 4's, ABD, soft roll, and an Arnel wrap. Patient was returned to Recovery Room in satisfactory condition where he will be discharged home to follow-up with me in the office as scheduled. There were no complications and no specimens. Related Problem List Diagnoses (1) Tear of medial meniscus of left knee: (2) Degenerative tear of lateral meniscus of left knee: (3) Primary osteoarthritis of left knee:
[2024-10-01] MEDS: HYDROcodone-acetaminophen 5-325 mg Tablet 1 TAB PO (11:58)
--- NOTE | 2024-10-01 12:30 | ANE.PACU2 ---
Inpatient post-anesthesia follow up: Airway intact: Yes Vital signs: Temperature 97.0 F Pulse Rate 57 Respiratory Rate 16 Blood Pressure 112/76 Pulse Oximetry 98 Oxygen Delivery Me thod Room Air Oxygen Flow Rate 8 Fraction of Inspir ed Oxygen Hydration adequate: Yes Nausea and vomiting: No Pain level: 1 Mental status: Baseline
== END 2024-10-01 12:30 | disposition home or self-care (01) ==
PROVIDERS: PCP Nurse Practitioner Family; Visit Provider Specialist
PROC: (CPT 29870; principal; 2024-10-01 09:00)
DX: S83.232A Complex tear of medial meniscus, current injury, left knee, initial encounter (principal); S83.282A Other tear of lateral meniscus, current injury, left knee, initial encounter; M17.12 Unilateral primary osteoarthritis, left knee; M94.262 Chondromalacia, left knee; M65.962 Unspecified synovitis and tenosynovitis, left lower leg; I10 Essential (primary) hypertension; K21.9 Gastro-esophageal reflux disease without esophagitis; X58.XXXA Exposure to other specified factors, initial encounter; Z79.899 Other long term (current) drug therapy; Z91.09 Other allergy status, other than to drugs and biological substances
CPT/HCPCS: 29880; J0690; J1100; J2270; J2405; J2704; J2795; J3010; J7030; J9999

== ENCOUNTER → 2024-10-13 15:04 | Outpatient (BNVA) | payer OTHER, SELFPAY | PROVIDERS: PCP Nurse Practitioner Family; Visit Provider Specialist | DX: Z98.890 Other specified postprocedural states (principal) | CPT/HCPCS: 99024 ==

== ENCOUNTER 2024-10-17 05:00 | Outpatient (RCR) | payer OTHER, SELFPAY | END 2024-11-15 23:59 | disposition home or self-care (01) | LOC: WPT 05:00 | PROVIDERS: PCP Nurse Practitioner Family; Visit Provider Specialist | DX: M17.12 Unilateral primary osteoarthritis, left knee (principal) | CPT/HCPCS: 97110; 97112; 97161; 97530 ==

== ENCOUNTER 2024-11-16 05:00 | Outpatient (RCR) | payer OTHER, SELFPAY | END 2024-12-16 23:59 | disposition home or self-care (01) | LOC: WPT 05:00 | PROVIDERS: PCP Family Medicine Geriatric Medicine; Visit Provider Specialist | DX: M17.12 Unilateral primary osteoarthritis, left knee (principal) | CPT/HCPCS: 97110; 97112; 97530 ==

== ENCOUNTER → 2024-12-06 14:40 | Outpatient (BNVA) | payer OTHER, SELFPAY | PROVIDERS: PCP Family Medicine Geriatric Medicine; Visit Provider Specialist | DX: M17.12 Unilateral primary osteoarthritis, left knee (principal); S83.232D Complex tear of medial meniscus, current injury, left knee, subsequent encounter; M23.301 Other meniscus derangements, unspecified lateral meniscus, left knee; X58.XXXD Exposure to other specified factors, subsequent encounter | CPT/HCPCS: 20610; 73560; 73565; 99213; J7327 ==

== ENCOUNTER → 2025-01-31 14:47 | Outpatient (BNVA) | payer OTHER, SELFPAY | PROVIDERS: PCP Family Medicine Geriatric Medicine; Visit Provider Specialist | DX: M17.12 Unilateral primary osteoarthritis, left knee (principal); Z01.818 Encounter for other preprocedural examination | CPT/HCPCS: 36415; 73560; 73565; 80053; 81001; 85025; 99214 ==

== ENCOUNTER 2025-02-15 10:07 | Outpatient (CLI) | payer OTHER, SELFPAY ==
--- NOTE | 2025-02-15 10:30 | CT_ITS ---
WS: [id number] CT LEFT knee, noncontrast HISTORY: PER [facility] PROTOCOL TECHNIQUE: Protocol for [facility] total knee replacement has been obtained. This includes axial imaging through the LEFT hip, LEFT knee and LEFT ankle. DLP: 1077.22 mGy.cm COMPARISON: Radiograph 01/31/2025 Hips: Mild narrowing of the SI joints. Mild acetabular osteophytic ridging on the LEFT. No destructive bone lesions. Scattered plaque in the femoral artery. LEFT knee: Moderate lateral subluxation of the patella. Tricompartment joint space narrowing, greatest in the medial compartment. Small marginal osteophytes. No fracture. Small joint effusion. LEFT ankle: Negative. CT/CT knee LT [facility] [id number] IMPRESSION: CT imaging provided for [facility] robotic total knee replacement.
== END 2025-02-15 10:08 | disposition home or self-care (01) ==
LOC: RAD 10:10
PROVIDERS: PCP Family Medicine Geriatric Medicine; Visit Provider Specialist
DX: M17.12 Unilateral primary osteoarthritis, left knee (principal); M23.301 Other meniscus derangements, unspecified lateral meniscus, left knee
CPT/HCPCS: 73700

== ENCOUNTER 2025-03-01 16:04 | Observation (INO) | payer OTHER, SELFPAY ==
[2025-03-01] VITALS (12 sets, daily range): BP systolic 104–124; BP diastolic 54–85; PULSE 58–67; RESP 16–24; TEMP 36.2–37.6; O2SAT 91–98; BMI 32.1
[2025-03-01] MEDS: acetaminophen 1,000 MG/100 ML PIGGYBACK 400 MG IV (10:29)
--- NOTE | 2025-03-01 10:36 | ANES.PREANE2 ---
Pre-Anesthetic Assessment Height/Weight: Height 1.93 m Weight 119.748 kg Temp Pulse Resp BP Pulse Ox O2 Del Method 97.1 F L 67 17 124/85 95 Room Air 03/01/25 10:07 03/01/25 10:07 03/01/25 10:07 03/01/25 10:07 03/01/25 10:07 03/01/25 10:11 Operation Date: 03/01/25 11:25 Proposed Procedures p LEFT Richard Robot Total Knee Arthroplasty(Left) - Claudette Rivera MD Familial anesthetic complications: None Was Beta Kelley taken within 24 hours: N/A Was Clonidine taken within 24 hours: N/A Last intake: Intake Last Liquid Date 02/28/25 Last Liquid Time 20:00 Last Solid Date 02/28/25 Last Solid Time 20:00 Social No alcohol and No tobacco Exam alert, oriented x 3, clear to auscultation bilaterally and regular rate & rhythm Airway Mallampati: Class I Dentition: full Pulmonary Sleep Apnea CV/HEM Hypertension GI Gastroesophageal Reflux Disease Anesthetic Plan ASA status: 3 Anesthesia: Regional (specify below) Other: Spinal Risk of > 500 ml blood loss (7ml/kg in children): No Medications/Allergies Home Medications ?Medication ?Instructions ?Recorded ?Confirmed ?Last Taken ?Type artificial 1 drp ophthalmic (eye) BID PRN Dry 09/04/21 02/28/25 02/28/25 History tears(gohpppl-vzkiypnm-rhiiiqq) Eye(S) 0.1 %-0.3 %-0.2 % eye drops hydroxyzine HCl 25 mg tablet 25 mg PO PRN PRN Anxiety 02/10/24 02/28/25 3 Months Ago History ~11/28/24 meloxicam 7.5 mg tablet 7.5 mg PO DAILY 02/10/24 02/28/25 2 Weeks Ago History ~02/14/25 mupirocin 2 % topical ointment 1 applic topical PRN PRN arthritis 02/10/24 02/28/25 3 Weeks Ago History ~02/07/25 alfuzosin 10 mg tablet,extended 10 mg PO DAILY 09/27/24 02/28/25 02/28/25 History release 24 hr cetirizine 10 mg tablet 10 mg PO DAILY PRN Allergy Symptoms 09/27/24 02/28/25 3 Weeks Ago History ~02/07/25 cholecalciferol (vitamin D3) 125 125 mcg PO DAILY 09/27/24 02/28/25 02/27/25 History mcg (5,000 unit) capsule cyclobenzaprine 10 mg tablet 10 mg PO TID 09/27/24 02/28/25 1 Month Ago History ~01/29/25 fluticasone propionate 50 1 spray intranasal DAILY 09/27/24 02/28/25 3 Weeks Ago History mcg/actuation nasal ~02/07/25 spray,suspension lisinopril 20 mg tablet 20 mg PO DAILY 09/27/24 02/28/25 02/28/25 History multivitamin 1 tab PO DAILY 09/27/24 02/28/25 02/28/25 History pantoprazole 40 mg tablet,delayed 40 mg PO BID 09/27/24 02/28/25 02/28/25 History release solifenacin 10 mg tablet 10 mg PO DAILY 09/27/24 02/28/25 02/28/25 History vit C 180 mg-D3 10 mcg-zinc 5.5 1 cap PO DAILY 09/27/24 02/28/25 02/28/25 History ua-umigkr-icfblja-heidi-herb capsule (Immune Support (vit c, d and zinc)) zinc acetate 50 mg (zinc) capsule 50 mg PO DAILY 09/27/24 02/28/25 02/27/25 History albuterol sulfate 90 mcg/actuation 2 puff inhalation TID PRN Wheezing 09/30/24 02/28/25 3 Weeks Ago History aerosol inhaler ~02/07/25 propranolol 60 mg capsule,24 60 mg PO DAILY 02/28/25 03/01/25 03/01/25 History hr,extended release Allergies Allergy/AdvReac Type Severity Reaction Status Date / Time adhesive tape Allergy ALGY-Rash Verified 03/01/25 10:02 Current Medications Generic Name Dose Route Start Last Admin Trade Name Freq PRN Reason Stop Dose Admin Sodium Chloride 1,000 mls @ 30 mls/hr 03/01/25 10:00 03/01/25 10:30 Sodium Chloride 0.9% IV 03/02/25 09:59 30 mls/hr .Q24H STANISLAW Administration PFSH Anesthesia Social History Smoking and tobacco/nicotine status: never used tobacco/nicotine Data Anesthesia Cardiac Studies: Sestamibi Stress Test (Cardiology) 09/02/23
--- NOTE | 2025-03-01 12:09 | W.PM.OPSUD ---
Surgery/Procedure H&P Update DATE OF PROCEDURE: March 01, 2025 DATE H&P PERFORMED: 02/28/25 H&P UPDATE INFORMATION: I have reviewed H&P completed within last 30 days, I have examined patient prior to procedure, No changes to prior documentation and H&P is in [facility] EMR on date indicated PREOP DIAGNOSIS: Primary osteoarthritis left knee PLANNED PROCEDURE: Operation Date: 03/01/25 11:25 Proposed Procedures p LEFT Richard Robot Total Knee Arthroplasty(Left) - Clauedtte Rivera MD Related Problem List Diagnoses 1. Primary osteoarthritis of left knee:
[2025-03-01] MEDS: ceFAZolin 3,000 MG in sodium chloride 0.9% (plus) 100 ML 200 MG IV ×2 (12:50→21:52)
[2025-03-01] MEDS: tranexamic acid 1,000 mg/10mL SDV 1000 MG XX (12:50)
[2025-03-01] MEDS: ceFAZolin 1,000 mg SDV 1000 MG IRRIGATION ×2 (13:28→13:29)
[2025-03-01] MEDS: BUPivacaine liposome 13.3 mg/mL SDV 20 mL 266 MG INFILTRATI (13:31)
[2025-03-01] MEDS: BUPivacaine 0.5% INJ 10 mL 20 ML INJECTION (13:31)
--- NOTE | 2025-03-01 16:04 | XRR_ITS ---
PROCEDURE INFORMATION: Exam: XR Left Knee Exam date and time: 03/01/2025 4:03 PM Age: 64 years old Clinical indication: Status post left total knee arthroplasty TECHNIQUE: Imaging protocol: Radiologic exam of the left knee. Views: 1 or 2 views. COMPARISON: CT knee LT [facility] [id number] 02/15/2025 10:40 AM FINDINGS: Bones/joints: Left total knee arthroplasty. Hardware is in expected location and alignment. No periprosthetic fracture. Soft tissues: Expected postoperative subcutaneous and intra-articular air. XR/XR knee LT 1-2V [id number] IMPRESSION: Uncomplicated appearance status post left total knee arthroplasty.
--- NOTE | 2025-03-01 16:20 | P.OP_ITS ---
Operative Report Date of procedure: March 01, 2025 Pre-op diagnosis: Severe degenerative osteoarthritis left knee with varus deformity Post-op diagnosis: Severe degenerative osteoarthritis left knee with varus deformity Post-op findings: Significant deformity and loss of cartilage. Inflammation of the synovial tissues. Procedure done: Left total knee arthroplasty with Richard guidance Implants: The Dae total knee system with a size 8 triathlon beaded cruciate retaining femur left, a triathlon titanium tibial component size 7 beaded, a triathlon X3 tibial bearing CS insert size 7 x 9 mm and a beaded triathlon titanium asymmetric patella size 40 x 11 mm Specimens removed/disposition: Bone, disposed of Pathology: None Surgeon: Claudette Rivera MD Stock Pitcher: Chelle Delvalle, nurse practitioner, who services were required for positioning, retraction, completion of the surgical procedure, and closure. Anesthesia: Spinal (With MAC, ASA 3) Estimated blood loss (mL): 250 Tourniquet time (min): 0 (Not utilized) IV fluids (mL): 900 Urine output (mL): 0 (No King per patient request) Complications: None Findings: Severe degenerative osteoarthritis with lateral laxity and varus deformity Condition: stable Disposition: PACU (Then to floor under observation status for pain management and physical therapy) Brief History: This 64-year-old gentleman presents today for left total knee arthroplasty. The patient previously has been seen in the office. He has had increasing pain and decreasing benefit from nonoperative management such as anti-inflammatories. The patient has also had physical therapy. Knee arthroscopy in September 2024 was also not beneficial to his care. After discussion, the patient wished to proceed with left total knee arthroplasty. Risks and complications were discussed with him and consents were signed. Procedure: The patient was brought to the operating theater, and after undergoing spinal anesthesia with MAC, ASA 3, the left lower extremity was prepped with Dura-Prep and draped in usual fashion following placement of a tourniquet high on the leg. The leg was then draped free.? Tourniquet was not elevated throughout the surgical procedure. Prior to commencement of the procedure, a surgical pause was performed, and at the time of the surgical pause, we confirmed the site and side of surgery. Additionally, we confirmed the appropriate and timely administration of preoperative antibiotics, Ancef 3 g.? The availability of equipment was confirmed, and the patient's identity was verbalized as well. Following the surgical pause, an incision was made centering over the patella continuing proximally and distally as necessary to allow access to the knee joint. Prior to incision, assessment was made of the patient's leg, and there was noted to be a significant varus deformity. Dissection continued through skin and soft tissues using a scalpel. Hemostasis was obtained using electrocautery. The skin incision was followed by a median parapatellar arthrotomy. The leg was extended and the patella was able to be displaced laterally.? Appropriate arrays and markers were placed in appropriate position for use of the Richard.? Preoperative planning had been accomplished and was discussed in detail with the Richard advertising sales representative.? Intraoperative mapping of the femur and tibia was accomplished after the arrays were placed.? Internal markers were also placed.? Once we had accomplished the Richard mapping, we began the appropriate resections for placement of the prosthesis.? The plan was for a cruciate retaining right total knee arthroplasty. Retraction was established using manual retraction by surgical technicians and also the Richard leg positioner and retractors.? The knee was evaluated.? There was significant osteoarthritic change with osteophytes and a significant varus deformity.? Intraoperative planning was adjusted based on the laxity laterally compared to medially secondary to varus deformity. Appropriate bone resection was accomplished using the Richard.? The femur was sized to a size 8.? Following femoral cuts, attention was directed to the tibia.? Osteophytes were removed prior to this portion of the procedure.? We had performed a medial release at the beginning of the procedure to allow for placement of the array.? Proximal tibia was evaluated, and it was felt that appropriate size for the tibia was a size 7.? The size 7 tray was noted to fit nicely with good coverage.? Rim fit was accomplished with the size 7. A trial reduction was accomplished after osteophytes as well as the medial and lateral menisci had been removed.? We had removed the anterior cruciate ligament at the beginning of the case and preserved the posterior cruciate ligament.? Trial reduction was accomplished with a size 8 femoral cruciate retaining component, a size 7 tibial tray and a size 7 CS tibial bearing insert which was 9 mm thickness. Balance was noted to be good with this configuration of a size 8 femur, a size 7 tibia with a 9 mm insert. Alignment was felt to be appropriate as well.? Initially, trial was accomplished with a 10 mm insert, but this was felt to be too tight. Trial components were removed after the femur had been drilled.? Prior to removal of the tibial tray which had been pinned in position with appropriate rotation as determined by the Richard plan, we broached the tibia.? Subsequently, the 4 drill holes were made for the prosthetic components.? All trial components were removed, and the wound was irrigated.? Plans were made for insertion of the prosthetic components.? Prior to this, the patella was manually prepared.? After resection of the articular surface with the jigging system, it was measured and measured a 40 mm patella.? We resected 11 mm of patella with the jig and slightly more resection was accomplished manually.? Patellar height was restored with the patellar component. Once again, the wound was irrigated. The Tritanium tibia was impacted into position.? The beaded femur was then impacted into position in a cementless fashion. The CS tibial insert was placed prior to placement of the femoral component. The patella was pressed into position with a patellar clamp.? The knee was then copiously irrigated with betadine and saline and suctioned dry. Attention was then directed to closure. Closure was accomplished with 0 Vicryl in the fascial tissues.? The suture line of 0 Vicryl was supplemented with strata fix, #1, with a running suture from proximal to distal and a second running stitch from distal to proximal.? This was followed by Surgiflo and vancomycin powder.? Following this, a 2-0 Monocryl was used in the subcutaneous tissues, and the skin was closed with 3-0 Strata fix.? Care was taken to assure an excellent subcutaneous as well as skin closure.? A sterile dressing was then placed consisting of Dermabond Prineo, OpSite, ABD, sterile soft roll, and an Arnel wrap including over the foot. The patient was returned the Recovery Room in a satisfactory condition. X-rays were obtained and reviewed there.? The patient will be discharged to the floor for postoperative rehabilitation and pain management. Related Problem List Diagnoses 1. Primary osteoarthritis of left knee: 2. Varus deformity, not elsewhere classified, left knee:
[2025-03-01] MEDS: oxyCODONE 5 mg IR Tab/Cap PO ×2 (17:37→20:37)
[2025-03-01] MEDS: sennosides-docusate Tablet 2 TAB PO (17:38)
[2025-03-01] MEDS: tranexamic acid 1,000 MG/100 ML PREMIX 600 MG IV (18:11)
[2025-03-01] MEDS: chlorhexidine gluconate 0.12% Btl 473 mL 30 ML MUCOUS MEM (21:51)
[2025-03-02] VITALS (7 sets, daily range): BP systolic 92–103; BP diastolic 53–71; PULSE 66–92; RESP 16–18; TEMP 36.3–36.6; O2SAT 92–98
[2025-03-02] MEDS: sennosides-docusate Tablet 2 TAB PO (05:06)
[2025-03-02] MEDS: multivitamin therapeutic Tablet 1 TAB PO (05:06)
[2025-03-02] MEDS: ceFAZolin 3,000 MG in sodium chloride 0.9% (plus) 100 ML 200 MG IV ×2 (05:08→12:20)
[2025-03-02] MEDS: chlorhexidine gluconate 0.12% Btl 473 mL 30 ML MUCOUS MEM ×2 (05:09→10:56)
[2025-03-02 05:11] LABS: Hematocrit 40.5 % (37-53); Hemoglobin 13.00 g/dL (11.27-16.99); Mean Corpuscular HGB Conc 32.1 g/dL (30-55); Mean Corpuscular Hemoglobin 27.1 pg (27-33); Mean Corpuscular Volume 84.4 fl (82-101); Nucleated Red Blood Cells % 0 %; Platelet Count 198 10^3/cmm (157-399); Red Blood Count 4.80 10^6/uL (3.85-5.65); White Blood Count 9.79 10^3/uL (3.29-11.43)
[2025-03-02] MEDS: mupirocin oint 22 gm 1 APPLIC NASAL (05:12)
[2025-03-02 05:31] LABS: Anion Gap 14.2 (5-19); Blood Urea Nitrogen 11 mg/dL (8-23); Calcium 8.8 mg/dL (8.5-10.5); Carbon Dioxide 25 mmol/L (22-29); Chloride 103 mmol/L (98-107); Creatinine Clr Calc Pharmacy 152.7460; Glucose 119 mg/dL (65-115); Osmolality Calculated 287 mOsm/kg (285-295); Potassium 4.2 mmol/L (3.5-5.1); Sodium 138 mmol/L (136-145)
[2025-03-02] MEDS: oxyCODONE 5 mg IR Tab/Cap PO (08:15)
--- NOTE | 2025-03-02 10:34 | PC.CHAP ---
Pastoral Care Encounter/Spiritual Assessment Type of Contact [] Declined information scientist visit [] Patient/Family/Request visit [] Outpatient visit [] Follow-up visit [] Physician referral [] Code/Alert [x] Routine visit [] Staff referral [] Actively dying [] Patient sleeping [] Family support [] [] Out of room [] Palliative care [] [] Receiving care in room [] Pre-surgical visit [] Trauma [] Long length of stay [] ICU visit [] Other: Relational/Emotional Strength [x] Patient feels connected with others/family/visitors/staff [] Distress [] Loneliness/isolation [] Abandonment Spirituality of Patient [x] Person of Kathy [] Attends Druze of their Kathy [x] Believes in Prayer [] Reads Bible or Anglican materials [] There are Spiritual issues to be addressed Lead Handler Interventions [x] Prayer [x] Active listening [x] Non-anxious presence [x] Spiritual/emotional support [] Crisis/trauma care [] Spiritual counseling [] Bereavement support [] Provided bereavement packet [] Provided Bible/devotional materials [] Provided toy/stuffed animal, coloring book to patient or family member [] Provided Communion [] Anointing/Joffre [] Salvation [x] Completed spiritual assessment [] Other: Impact on Illness or Injury [] Angry [] Fearful [] Anxious [] Often cries [] Exhaustion [] Unable to work [] Unable to attend gnosticism [] Unable to walk/stand [] Unable to read [] Unable to drive [] Unable to eat/drink [] Unable to sleep [] Unable to be with family [] Patient intubated [] Other: Summary Time spent with patient 5 min
--- NOTE | 2025-03-02 13:38 | PM.DCS ---
Discharge Providers Date of Admission: 03/01/25 16:04 Date of Discharge: March 02, 2025 Attending Provider at Admission: Claudette Rivera MD Attending Provider at Discharge: Claudette Rivera MD Primary Care Provider: Chidi Urban MD Diagnoses at Discharge Discharge Diagnosis 1. Primary osteoarthritis of left knee: 2. Varus deformity, not elsewhere classified, left knee: 3. Status post total left knee replacement not using cement: Reason for Visit Reason for Visit: M17.12 Brief History: This 64-year-old gentleman presents today for left total knee arthroplasty. The patient previously has been seen in the office. He has had increasing pain and decreasing benefit from nonoperative management such as anti-inflammatories. The patient has also had physical therapy. Knee arthroscopy in September 2024 was also not beneficial to his care. After discussion, the patient wished to proceed with left total knee arthroplasty. Risks and complications were discussed with him and consents were signed. Hospital Course Hospital Course This 64-year-old gentleman was admitted under observation status to the hospital following uneventful left total knee arthroplasty with Richard guidance. He did well postoperatively. There was no evidence of DVT or other complication. Physical therapy felt he was safe for discharge to home, and arrangements were made for him. He will have home physical therapy and follow-up in the office as scheduled. Physical Exam Const: COMMON NORMALS: no acute distress, average body habitus, patient oriented x3 and alert GENERAL APPEARANCE: cooperative and comfortable ORIENTATION/CONSCIOUSNESS: Yes awake HENMT: COMMON NORMALS: normocephalic and atraumatic HEAD & SCALP: normocephalic and atraumatic Eye: GENERAL EYE: appearance normal, both eyes and all related structures Chest: COMMONS NORMALS: normal inspection of the chest Resp: COMMON NORMALS: normal respiratory effort EFFORT & INSPECTION: Yes able to speak in complete sentences and Yes symmetric chest movement Extremity: LEFT LOWER EXTREMITY: Yes knee joint (Large outer dressing is removed. No evidence of DVT) Left knee: Yes inspection (Minimal swelling minimal ecchymosis), Yes palpation (No significant tenderness), Yes ROM (Not evaluated) and Yes neurovascular exam (Intact distally with no evidence of DVT) Neuro: COMMON NORMALS: patient oriented x3 SENSORIUM/ORIENTATION: Yes alert Psych: COMMON NORMALS: mental status grossly normal APPEARANCE: Yes grossly normal ATTITUDE: Yes calm and Yes engaged ATTENTION/CONCENTRATION: Yes attention grossly intact Skin: COMMON NORMALS: no rashes or lesions noted GENERAL SKIN EXAM: no rashes or lesions noted Discharge Data Studies Completed and Pending Completed Studies During Hospitalization Category Date Time Status XR knee LT 1-2V [id number] Routine Exams 03/01/25 16:04 Completed Radiology Impressions Knee X-Ray 03/01/25 16:04 IMPRESSION: Uncomplicated appearance status post left total knee arthroplasty. Laboratory Results WBC 9.79 10^3/uL (3.29-11.43) 03/02/25 04:50 RBC 4.80 10^6/uL (3.85-5.65) 03/02/25 04:50 Hgb 13.00 g/dL (11.27-16.99) 03/02/25 04:50 Hct 40.5 % (37-53) 03/02/25 04:50 MCV 84.4 fl (82-101) 03/02/25 04:50 MCH 27.1 pg (27-33) 03/02/25 04:50 MCHC 32.1 g/dL (30-55) 03/02/25 04:50 RDW 14.5 % (12.1-15.1) 03/02/25 04:50 Plt Count 198 10^3/cmm (157-399) 03/02/25 04:50 MPV 11.0 fL (7.4-10.4) H 03/02/25 04:50 Neut % (Auto) 83.6 % 03/02/25 04:50 Lymph % (Auto) 8.9 % 03/02/25 04:50 Bullock % (Auto) 6.9 % 03/02/25 04:50 Eos % (Auto) 0.1 % 03/02/25 04:50 Baso % (Auto) 0.1 % 03/02/25 04:50 Neut # (Auto) 8.18 10^3/uL (1.8-7.7) H 03/02/25 04:50 Lymph # (Auto) 0.9 10^3/uL (0.8-4.8) 03/02/25 04:50 Bullock # (Auto) 0.7 10^3/uL (0.2-0.9) 03/02/25 04:50 Eos # (Auto) 0.0 10^3/uL (0.0-0.8) 03/02/25 04:50 Baso # (Auto) 0.0 10^3/uL (0.0-0.1) 03/02/25 04:50 Nucleated RBC % (auto) 0 % 03/02/25 04:50 Nucleated RBCs # 0.0 /100WBC 03/02/25 04:50 Sodium 138 mmol/L (136-145) 03/02/25 04:50 Potassium 4.2 mmol/L (3.5-5.1) 03/02/25 04:50 Chloride 103 mmol/L (98-107) 03/02/25 04:50 Carbon Dioxide 25 mmol/L (22-29) 03/02/25 04:50 Anion Gap 14.2 (5-19) 03/02/25 04:50 BUN 11 mg/dL (8-23) 03/02/25 04:50 Creatinine 0.7 mg/dL (0.7-1.2) 03/02/25 04:50 GFR Calculation 113.9 mL/min (90-130) 03/02/25 04:50 Glucose 119 mg/dL (65-115) H 03/02/25 04:50 POC Glucose 106 mg/dL (70-110) 03/02/25 06:17 Calculated Osmolality 287 mOsm/kg (285-295) 03/02/25 04:50 Calcium 8.8 mg/dL (8.5-10.5) 03/02/25 04:50 Vitals Last Vital Signs Temp 97.8 F 03/02/25 11:50 Pulse 67 03/02/25 11:50 Resp 18 03/02/25 11:50 BP 94/56 03/02/25 12:48 Pulse Ox 98 03/02/25 11:50 O2 Del Method Room Air 03/02/25 09:29 Discharge Plan Discharge Patient Disposition: Home Health Service Condition: Stable Prescriptions: New aspirin 325 mg Tablet,Delayed Release (Dr/Ec) 325 mg PO DAILY 30 Days Qty: 30 0RF celecoxib 200 mg Capsule 200 mg PO 1XD 30 Days Qty: 30 0RF oxycodone 5 mg Tablet 5 mg PO Q4H PRN (Reason: Moderate To Severe Pain) 7 Days Qty: 40 0RF Continued artificial tear(yuctg-luz-ebt) 0.1-0.3-0.2 % drops 1 drp ophthalmic (eye) BID PRN (Reason: Dry Eye(S)) lisinopril 20 mg tablet 20 mg PO DAILY mupirocin 2 % ointment 1 applic topical PRN PRN (Reason: arthritis) hydroxyzine HCl 25 mg tablet 25 mg PO PRN PRN (Reason: Anxiety) cyclobenzaprine 10 mg tablet 10 mg PO TID cetirizine 10 mg tablet 10 mg PO DAILY PRN (Reason: Allergy Symptoms) pantoprazole 40 mg tablet,delayed release (DR/EC) 40 mg PO BID fluticasone propionate 50 mcg/actuation spray,suspension 1 spray intranasal DAILY Rx Instructions: administer into each nostril alfuzosin 10 mg tablet extended release 24 hr 10 mg PO DAILY Rx Instructions: administer after the same meal each day solifenacin 10 mg tablet 10 mg PO DAILY multivitamin Tablet 1 tab PO DAILY zinc acetate 50 mg (zinc) capsule 50 mg PO DAILY cholecalciferol (vitamin D3) 125 mcg (5,000 unit) capsule 125 mcg PO DAILY Immune Support (vit c,d,zinc) 180 mg-10 mcg- 5.5 mg-150 mg capsule 1 cap PO DAILY propranolol 60 mg capsule,extended release 24 hr 60 mg PO DAILY albuterol sulfate 90 mcg/actuation HFA aerosol inhaler 2 puff INHALATION TID PRN (Reason: Wheezing) Held meloxicam 7.5 mg tablet 7.5 mg PO DAILY Hold Instructions: Until Celebrex is completed or stopped Discharge Order = DC NOW: Discharge Order (Routine); Ordered 03/02/25 Ordered By: Claudette Rivera Referrals: [facility] [Outside] Claudette Rivera MD [Physician, Orthopedics] - 03/14/25 11:00 am Discharge Diet: Advance as tolerated and Usual diet Discharge Activity: Increase activity as tolerated, Limit activity as instructed, Use walker/crutches as instructed and As per PT/OT instructions Patient Instructions: Aspirin (By mouth), Celecoxib (By mouth), Acute Wound Care (DC), Total Knee Replacement (GEN), Opioid Safety, Post Anesthesia Care, Patient Portal & Jan Instructions Activity Restrictions/Additional Instructions: Maintain current dressing until it comes off on its own. If it begins to leak, you may remove it sooner. You may shower, but do not submerge your knee in water. Ice to the left knee. Weightbearing as tolerated. Gait training, strengthening, and ambulation per physical therapy. Discharge Attestations Time Spent in Discharge Care*: greater than 30 min Specific Discharge Activities: educating patient, documenting/other paperwork and evaluating patient/reviewing data Quality Metrics Clinical Quality Measures [ No reported AMI, CVA or VTE this stay] Coding Level of Care Code Acute Code for g Fwd Diagnoses Primary osteoarthritis of left knee M17.12 Varus deformity, not elsewhere classified, left knee M21.162 Status post total left knee replacement not using cement Z96.652
== END 2025-03-02 15:30 | disposition home health service (06) ==
LOC: MEDSURG 16:04
PROVIDERS: Admitting Provider Specialist; PCP Family Medicine Geriatric Medicine; Visit Provider Specialist
PROC: 8E0Y0CZ Robotic Assisted Procedure of Lower Extremity, Open Approach (ICD-10-PCS; CPT 27447; principal; 2025-03-01 11:25)
DX: M17.12 Unilateral primary osteoarthritis, left knee (principal); M21.162 Varus deformity, not elsewhere classified, left knee; G47.30 Sleep apnea, unspecified; K21.9 Gastro-esophageal reflux disease without esophagitis; I10 Essential (primary) hypertension
CPT/HCPCS: 27447; 20985; 36415; 36416; 73560; 80048; 82962; 85025; 97116; 97161; 97165; A4216; C1776; G0378; J0131; J0666; J0690; J1100; J2250; J2371; J2405; J2704; J3010; J3373; J3490; J3535; J7030; J9999

== ENCOUNTER → 2025-03-09 09:28 | Outpatient (BNVA) | payer OTHER, SELFPAY | PROVIDERS: PCP Family Medicine Geriatric Medicine; Visit Provider Specialist | DX: Z98.890 Other specified postprocedural states (principal); Z96.652 Presence of left artificial knee joint | CPT/HCPCS: 73560; 73565; 99024 ==

== ENCOUNTER → 2025-04-06 09:50 | Outpatient (BNVA) | payer OTHER, SELFPAY | PROVIDERS: Visit Provider Specialist | DX: Z98.890 Other specified postprocedural states (principal); Z96.652 Presence of left artificial knee joint | CPT/HCPCS: 73560; 73565; 99024 ==

== ENCOUNTER 2025-04-13 15:57 | Outpatient (RCR) | payer OTHER, SELFPAY | END 2025-04-17 23:59 | disposition home or self-care (01) | LOC: WPT 15:57 | PROVIDERS: Visit Provider Specialist | DX: Z47.1 Aftercare following joint replacement surgery (principal); Z96.652 Presence of left artificial knee joint | CPT/HCPCS: 97110; 97112; 97530 ==

== ENCOUNTER 2025-05-18 08:00 | Outpatient (RCR) | payer OTHER, SELFPAY | END 2025-05-18 23:59 | disposition home or self-care (01) | LOC: WPT 08:00 | PROVIDERS: Visit Provider Specialist | DX: Z47.89 Encounter for other orthopedic aftercare (principal); Z96.652 Presence of left artificial knee joint | CPT/HCPCS: 97110; 97112; 97530 ==